=== PATIENT | female | born 1975 | race Caucasian/White ===

== ENCOUNTER 2020-02-13 06:58 | Emergency (ER) | payer BC, SELFPAY ==
[2020-02-13] VITALS (7 sets, daily range): BP systolic 106–126; BP diastolic 72–90; PULSE 63–90; RESP 16–19; TEMP 37.1; O2SAT 92–98; BMI 34.0
--- NOTE | 2020-02-13 07:10 | XR_ITS ---
WS: [id number] EXAM: AP CHEST: PORTABLE UPRIGHT DATE OF EXAM: 02/13/2020, 0803 hours COMPARISON: Chest x-ray from 12/08/2017. HISTORY: Patient is 45 years old with atraumatic chest pain. FINDINGS: The cardiac silhouette is normal in size. The mediastinal contours are normal. The pulmonary vas cularity is normal. The lungs are clear of infiltrate. There is no effusion or pneumothorax. No ac ely shoshone bony abnormality is seen. XR/XR chest 1V portable [id number] IMPRESSION: No acute pulmonary disease.
--- NOTE | 2020-02-13 07:10 | ECG_ITS ---
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 Measurements Intervals [place] Rate: 87 P: -37 CA: 113 QRS: 90 QRSD: 84 T: 61 QT: 352 QTc: 424 Interpretive Statements SINUS RHYTHM WITH SHORT CA INTERVAL Compared to ECG 12/08/2017 20:42:28 Short CA interval now present Electronically Signed On 02-13-2020 14:48:58 CDT by Tami Caldwell M.D. [id number]
--- NOTE | 2020-02-13 07:10 | W.ED.CHESTPA ---
HPI - Chest Pain General: Chief Complaint: Chest Pain Stated Complaint: CP Time Seen by Provider: 02/13/20 07:09 History of Present Illness: HPI narrative: 45-year-old female who presents to the emergency room with complaint of chest pain that started 3 days ago states is gotten increasingly worse. It is epigastric radiating up into the chest. This began 3 days ago. Is worse when she swallows she has had some nausea but no vomiting or diarrhea she denies fever chest pain is worse with coughing. She denies any previous evaluation for any chest pain or any cardiac evaluation. MD complaint: chest pain Onset (ago): day(s) (3) Timing of current episode: constant Prior episodes: No Onset: during rest Pain location: substernal and epigastric Pain radiation: abdomen Severity: severe Quality: aching Relieving factors: nothing Exacerbating factors: nothing Associated symptoms: Reports abdominal pain, dyspnea and nausea; Deny diaphoresis, fever(s), leg edema, palpitations, sense of impending doom, syncope or vomiting Treatment prior to arrival: none Review of Systems Const: Denies: fever(s) or diaphoresis ENMT: Denies: throat pain, ear or mastoid pain, nasal discharge or nasal congestion Card: Denies: palpitations or syncope Resp: Reports: dyspnea GI: Reports: abdominal pain and nausea; Denies: vomiting : Denies: flank pain, difficulty voiding, dysuria, urinary frequency or urinary urgency Skin/Breast: Denies: rash or pruritus [facility] ED PFSH: Surgical History (Updated 02/13/20 @ 11:12 by Geovani Ortega DO) H/O: hysterectomy Hx of cholecystectomy Social History (Updated 02/13/20 @ 07:08 by Delroy Cordero RN) Smoking and tobacco status: light tobacco smoker Alcohol intake: never Physical Exam Const: COMMON NORMALS: no acute distress GENERAL APPEARANCE: cooperative and comfortable ORIENTATION/CONSCIOUSNESS: Yes awake, Yes oriented to person, Yes oriented to place and Yes oriented to time HENMT: COMMON NORMALS: normocephalic, atraumatic and hearing grossly normal bilaterally HEAD & SCALP: normocephalic and atraumatic Eye: COMMON NORMALS: Equal, round and reactive pupils present, EOMs intact bilaterally, conjunctivae normal and no scleral icterus CONJUNCTIVA: Yes conjunctivae normal PUPIL: Yes Equal, round and reactive pupils present Neck/C-Spine: COMMON NORMALS: no JVD Resp: COMMON NORMALS: normal respiratory effort, No retractions, No use of accessory muscles and clear to auscultation bilaterally AUSCULTATION: clear to auscultation bilaterally Cardio: COMMON NORMALS: no JVD, regular rate, regular rhythm and No murmurs present (Cardio) RATE: regular rate RHYTHM: regular rhythm GI: COMMON NORMALS: Soft to palpation and No hepatosplenomegaly present AUSCULTATION: Yes normoactive bowel sounds PALPATION: Yes Soft to palpation, No Tenderness to palpation present (GI), No Guarding due to palpation present (GI) and Yes No hepatosplenomegaly present Extremity: COMMON NORMALS: normal to inspection, capillary refill normal, no clubbing, cyanosis or edema, no calf tenderness and no pedal edema Neuro: SENSORIUM/ORIENTATION: Yes oriented to person, Yes oriented to place and Yes oriented to time Skin: COMMON NORMALS: no rashes or lesions noted GENERAL SKIN EXAM: no rashes or lesions noted Course Vital Signs: Vital signs: Vital Signs Temperature 98.7 F 02/13/20 07:03 Pulse Rate 81 02/13/20 12:01 Respiratory Rate 17 02/13/20 12:01 Blood Pressure 106/72 02/13/20 12:01 Pulse Oximetry 92 02/13/20 12:01 MDM - Chest Pain MDM Narrative: Medical decision making narrative: Troponin negative, patient had relief with the GI cocktail. CT of the abdomen negative we will go and discharge her home on a PPI and antiemetics and will also get her set up for an EGD with Dr. Orellana. Lab Data: Labs: Lab Results 02/13/20 02/13/20 02/13/20 Range/Units 07:23 07:23 07:23 WBC 12.3 H (4.0-10.0) 10^3/ uL RBC 4.97 (4.1-5.3) 10^6/u L Hgb 14.9 (11.5-15.3) g/dL Hct 45.0 (37.0-47.0) % MCV 90.5 (81-99) fL MCH 30.0 (28.0-34.0) pg MCHC 33.1 (30.0-36.0) g/dL RDW 12.2 (12.1-15.1) % Plt Count 311 (130-400) 10^3/c mm MPV 9.0 (7.4-10.4) fL Neut % (Auto) 72.8 % Lymph % (Auto) 18.8 % [place] % (Auto) 5.9 % Eos % (Auto) 1.5 % Baso % (Auto) 0.6 % Neut # (Auto) 8.97 H (1.8-7.7) 10^3/u L Lymph # (Auto) 2.3 (0.8-4.8) 10^3/u L [place] # (Auto) 0.7 (0.2-0.9) 10^3/u L Eos # (Auto) 0.2 (0.0-0.8) 10^3/u L Baso # (Auto) 0.1 (0.0-0.1) 10^3/u L Nucleated RBC % (a uto) 0 % Nucleated RBCs # 0.0 /100WBC Sodium 136 (136-145) mmol/L Potassium 4.1 (3.5-5.1) mmol/L Chloride 101 (98-107) mmol/L Carbon Dioxide 23 (22-29) mmol/L Anion Gap 16.1 (5-19) BUN 12 (6-20) mg/dL Creatinine 0.6 (0.5-0.9) mg/dL GFR Calculation 108.1 (90-130) mL/min Glucose 126 H (65-115) mg/dL Calculated Osmolal ity 280 L (285-295) mOsm/k g Calcium 8.9 (8.5-10.5) mg/dL Total Bilirubin 0.4 (0.15-1.2) mg/dL AST 21 (0-32) U/L ALT 29 (0-33) U/L Alkaline Phosphata se 81 (35-105) IU/L Troponin T Baselin e 7 (0-10) ng/L Troponin T 120 Min [place] (0-10) ng/L Delta Troponin T (0-10) ABS# Total Protein 7.2 (6.6-8.7) g/dL Albumin 4.4 (3.5-5.2) g/dL Globulin 2.8 (1.3-4.6) g/dL Urine Color (Yellow) Urine Appearance (CLEAR) Urine pH (5-7) Ur Specific Gravit y (1.005-1.030) Urine Protein (Negative) Urine Glucose (UA) (Normal) Urine Ketones (Negative) Urine Blood (Negative) Urine Nitrate (Negative) Urine Bilirubin (Negative) Urine Urobilinogen (Negative) mg/dL Ur Leukocyte Gloria ase (Negative) 02/13/20 02/13/20 Range/Units 09:25 10:20 WBC (4.0-10.0) 10^3/ uL RBC (4.1-5.3) 10^6/u L Hgb (11.5-15.3) g/dL Hct (37.0-47.0) % MCV (81-99) fL MCH (28.0-34.0) pg MCHC (30.0-36.0) g/dL RDW (12.1-15.1) % Plt Count (130-400) 10^3/c mm MPV (7.4-10.4) fL Neut % (Auto) % Lymph % (Auto) % [place] % (Auto) % Eos % (Auto) % Baso % (Auto) % Neut # (Auto) (1.8-7.7) 10^3/u L Lymph # (Auto) (0.8-4.8) 10^3/u L [place] # (Auto) (0.2-0.9) 10^3/u L Eos # (Auto) (0.0-0.8) 10^3/u L Baso # (Auto) (0.0-0.1) 10^3/u L Nucleated RBC % (a uto) % Nucleated RBCs # /100WBC Sodium (136-145) mmol/L Potassium (3.5-5.1) mmol/L Chloride (98-107) mmol/L Carbon Dioxide (22-29) mmol/L Anion Gap (5-19) BUN (6-20) mg/dL Creatinine (0.5-0.9) mg/dL GFR Calculation (90-130) mL/min Glucose (65-115) mg/dL Calculated Osmolal ity (285-295) mOsm/k g Calcium (8.5-10.5) mg/dL Total Bilirubin (0.15-1.2) mg/dL AST (0-32) U/L ALT (0-33) U/L Alkaline Phosphata se (35-105) IU/L Troponin T Baselin e (0-10) ng/L Troponin T 120 Min [place]ark[place] 6.00 (0-10) ng/L Delta Troponin T -1.00 L (0-10) ABS# Total Protein (6.6-8.7) g/dL Albumin (3.5-5.2) g/dL Globulin (1.3-4.6) g/dL Urine Color Straw (Yellow) Urine Appearance Clear (CLEAR) Urine pH 7.0 (5-7) Ur Specific Gravit y 1.005 (1.005-1.030) Urine Protein Neg (Negative) Urine Glucose (UA) Norm (Normal) Urine Ketones Negative (Negative) Urine Blood Neg (Negative) Urine Nitrate Negative (Negative) Urine Bilirubin Neg (Negative) Urine Urobilinogen Norm (Negative) mg/dL Ur Leukocyte Gloria ase Negative (Negative) Discharge Plan Discharge Patient Disposition: Home Clinical Impression: Reflux esophagitis Condition: Stable Prescriptions: New Zofran 4 mg tablet 4 mg PO Q6H PRN (Reason: nausea and vomiting) Qty: 20 RF: 0 No Action ibuprofen 200 mg Tablet 400 mg PO PRN RF: 0 Pepto-Bismol See Rx Instructions .ROUTE .COMPLEX RF: 0 Tums See Rx Instructions .ROUTE .COMPLEX RF: 0 Discharge Orders: Discharge Order (Routine); Ordered 02/13/20 Ordered By: Geovani Ortega Discharge Activity: Increase activity as tolerated Patient Instructions: Diet for Ulcers and Gastritis (ED) Activity Restrictions/Additional Instructions: Aloe up with your doctor within 7 to 10 days. Return to the emergency room you have any problems. Discharge Date/Time: 02/13/20 12:03 Coding Level of Care Code ED Target Network Analyst for Adrienne Fwd Exam Comprehensive
[2020-02-13] MEDS: ondansetron 2 mg/ML SDV 2 mL 4 MG IVP ×2 (07:23→09:02)
[2020-02-13] MEDS: lidocaine 2% viscous 15 ML, aluminum-mag hydrox-simethicon 30 ML, sucralfate oral liq 1 GM PO (07:23)
[2020-02-13 07:29] LABS: Basophils # 0.1 10^3/uL (0.0-0.1); Basophils % 0.6 %; Eosinophils # 0.2 10^3/uL (0.0-0.8); Eosinophils % 1.5 %; Hemoglobin 14.9 g/dL (11.5-15.3); Lymphocytes # 2.3 10^3/uL (0.8-4.8); Lymphocytes % 18.8 %; Mean Corpuscular HGB Conc 33.1 g/dL (30.0-36.0); Mean Corpuscular Volume 90.5 fL (81-99); Monocytes # 0.7 10^3/uL (0.2-0.9); Monocytes % 5.9 %; Neutrophils # 8.97 10^3/uL (1.8-7.7); Neutrophils % 72.8 %; Nucleated Red Blood Cells % 0 %; Platelet Count 311 10^3/cmm (130-400); Red Blood Count 4.97 10^6/uL (4.1-5.3); Red Cell Distribution Width 12.2 % (12.1-15.1); White Blood Count 12.3 10^3/uL (4.0-10.0)
[2020-02-13 07:50] LABS: Alanine Aminotransferase 29 U/L (0-33); Albumin Level 4.4 g/dL (3.5-5.2); Alkaline Phosphatase 81 IU/L (35-105); Anion Gap 16.1 (5-19); Aspartate Amino Transferase 21 U/L (0-32); Blood Urea Nitrogen 12 mg/dL (6-20); Calcium 8.9 mg/dL (8.5-10.5); Carbon Dioxide 23 mmol/L (22-29); Chloride 101 mmol/L (98-107); Creatinine Clr Calc Pharmacy 152.2481; Globulin 2.8 g/dL (1.3-4.6); Glomerular Filtration Rate 108.1 mL/min (90-130); Glucose 126 mg/dL (65-115); Osmolality Calculated 280 mOsm/kg (285-295); Potassium 4.1 mmol/L (3.5-5.1); Sodium 136 mmol/L (136-145); Total Bilirubin 0.4 mg/dL (0.15-1.2); Total Protein 7.2 g/dL (6.6-8.7); Troponin(5th) Baseline 7 ng/L (0-10)
--- NOTE | 2020-02-13 08:56 | CT_ITS ---
WS: [id number] CT ABDOMEN AND PELVIS WITH CONTRAST HISTORY: abd pain, chest and RIGHT upper quadrant pain for 3 days. TECHNIQUE: Imaging performed of the abdomen and pelvis with IV contrast. Single phase imaging of the abdomen. Coronal and sagittal reformats are submitted. All CT scans at [facility] use at least one of these dose optimization techniques: automated exposure control; mA and/or kV adjustment per patient size (includes targeted exams where dose is matched to clinical indication); or iterativ e reconstruction. IV CONTRAST: Omnipaque 300; 95 mL IV. Oral contrast: No DLP: 1611.91 mGy.cm COMPARISON: 01/09/2019 Lower thorax: Stable 8 mm nodule central calcification medial RIGHT lower lobe since 2019. Heart is n ormal size. Small hiatal hernia. Liver/biliary system: Normal size with no intrahepatic dilatation. Gallbladder: Status post cholecystectomy. No bile duct dilatation. Pancreas: Normal. Spleen: Normal. Adrenal glands: Normal. Right kidney: Cortical 8 mm cyst in the mid kidney. No obstruction. Left kidney: Normal. Aorta: Normal. Lymphadenopathy: None. Free fluid: None. GI tract: Normal appendix. No GI tract obstruction. No wall thickening. Slight increased amount of fl uid in the cecum and distal small bowel. Abdominal wall: Fat-containing umbilical hernia. Pelvis: Prior hysterectomy. Urinary bladder is not distended. Bones: L4 anterolisthesis by [address]/CT abdomen pelvis w con* [id number] IMPRESSION: 1. Prior cholecystectomy and hysterectomy. 2. No acute abdominal or pelvic abnormalities are identified. There is very mi nimal increase fluid in the cecum. No appendicitis.
[2020-02-13] MEDS: morphine 4 mg/mL SDV 1 mL IVP (09:01)
--- NOTE | 2020-02-13 09:10 | ECG_ITS ---
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 Measurements Intervals [place] Rate: 63 P: -8 ID: 123 QRS: 94 QRSD: 87 T: 36 QT: 410 QTc: 420 Interpretive Statements SINUS RHYTHM BORDERLINE RIGHT AXIS DEVIATION [QRS AXIS > 90] Compared to ECG 02/13/2020 07:13:05 Short ID interval no longer present Electronically Signed On 02-13-2020 22:30:52 CDT by Tami Caldwell M.D. [email or web address] [email or web address].[email or web address]/store/OM/[id number]
[2020-02-13 09:29] LABS: Add Urine Microscopic? NO
[2020-02-13] MEDS: diphenhydrAMINE 50 mg/mL SDV 1mL 25 MG IVP (09:32)
[2020-02-13 09:38] LABS: Protein Urine Neg (Negative); Specific Gravity, Urine 1.005 (1.005-1.030); Urine Appearance Clear (CLEAR); Urine Color Straw (Yellow)
[2020-02-13 09:39] LABS: Bilirubin Urine Neg (Negative); Blood Urine Neg (Negative); Glucose Urine UA Norm (Normal); Ketones Urine Negative (Negative); Leukocyte Esterase Urine Negative (Negative); Nitrate Urine Negative (Negative); Urobilinogen Urine Norm (Negative)
[2020-02-13] MEDS: iohexol 300 mg/mL 100 mL Btl IV (09:54)
--- NOTE | 2020-02-13 15:47 | DCPLANNER ---
lands resource manager had message to schedule a follow up appointment for patient with Dr. Orellana. lands resource manager called the office of Dr. Orellana, spoke with Jesenia. A follow up appointment was scheduled for , February 15, 2020 at 11:[address] Orellana, clinic will call patient with appointment information.
--- NOTE | 2020-03-01 08:20 | DCPLANNER ---
Patient had a follow up appointment scheduled for 02.15.[address] Orellana - patient did attend appointment.
== END 2020-02-13 12:03 | disposition home or self-care (01) ==
PROVIDERS: Emergency Provider Family Medicine
DX: K21.0 Gastro-esophageal reflux disease with esophagitis (principal); F17.210 Nicotine dependence, cigarettes, uncomplicated
CPT/HCPCS: 12345; 36415; 71045; 74177; 80053; 81003; 84484; 85025; 93005; 96374; 96375; 99283; 99284; J1200; J2270; J2405; Q9967

== ENCOUNTER 2020-02-23 08:23 | Day surgery (SDC) | payer BC, SELFPAY ==
[2020-02-22 16:24] VITALS: BMI 34.9
[2020-02-23 08:39] VITALS: BP 111/80; PULSE 83; RESP 18; TEMP 36.3; O2SAT 98
--- NOTE | 2020-02-23 08:49 | ANES.PREANE2 ---
Pre-Anesthetic Assessment Pre-Anesthetic Assessment: Height/Weight: Height 1.73 m Weight 104.326 kg Temp Pulse Resp BP Pulse Ox 97.3 F L 83 18 111/80 98 02/23/20 08:39 02/23/20 08:39 02/23/20 08:39 02/23/20 08:39 02/23/20 08:39 Preop Diagnosis: GERD Proposed Procedure: Operation Date: 02/23/20 09:30 Proposed Procedures p EGD R13.10 90116(Not Applicable) - Eugene Orellana MD Was Beta Ángel taken within 24 hours: N/A Last intake: Intake Last Liquid Date 02/22/20 Last Liquid Time 22:30 Last Solid Date 02/22/20 Last Solid Time 18:30 Social: Social History: Tobacco (1pk a week) and No alcohol Exam: Pre-Anes Outpt Exam: alert, oriented x 3, clear to auscultation bilaterally and regular rate & rhythm Airway: Submandibular: WNL Cervical ROM: WNL MP: 2 Dentition: Full History/ROS: No significant history except as noted and No significant complaints Pulmonary: Pulmonary: None reported CV/HEM: CV/HEM: None reported : : None reported Hepatic: Hepatic: None reported GI: GI: GERD Metabolic: Metabolic: Morbid obesity Musc/skel: Musc/skel: None reported Neuropsych: Neuropsych: Anxiety and ARRIETA Anesthetic Plan: ASA status: 2 PFSH Anesthesia PFSH: Surgical History H/O: hysterectomy Hx of cholecystectomy Social History (Updated 02/15/20 @ 11:16 by NOE Nj) Smoking and tobacco status: light tobacco smoker Alcohol intake: never History of recent travel: No Data Anesthesia Cardiac Studies: No Data to Display
[2020-02-23] MEDS: sodium chloride 0.9% 1,000 ML 30 ML IV (08:52)
--- NOTE | 2020-02-23 09:02 | W.PM.OPSUD ---
Surgery/Procedure H&P Update DATE OF PROCEDURE: February 23, 2020 DATE H&P PERFORMED: 02/15/20 PREOP DIAGNOSIS: GERD PLANNED PROCEDURE: Operation Date: 02/23/20 09:30 Proposed Procedures p EGD R13.10 [id number](Not Applicable) - Eugene Orellana MD
[2020-02-23 09:20] VITALS: BP 115/88; PULSE 78; RESP 16; TEMP 36.1; O2SAT 98
--- NOTE | 2020-02-23 10:00 | ANE.PACU2 ---
Inpatient post-anesthesia follow up: Airway intact: Yes Vital signs: Temperature 97 F Pulse Rate 78 Respiratory Rate 16 Blood Pressure 115/88 Pulse Oximetry 98 Oxygen Delivery Me thod Nasal Cannula Oxygen Flow Rate 2 Fraction of Inspir ed Oxygen Hydration adequate: Yes Nausea and vomiting: No Mental status: Baseline
[2020-02-24 14:45] LABS: H. Pylori / CLO Test Positive
== END 2020-02-23 09:50 | disposition home or self-care (01) ==
PROVIDERS: Visit Provider Internal Medicine
PROC: 0DJ08ZZ Inspection of Upper Intestinal Tract, Via Natural or Artificial Opening Endoscopic (ICD-10-PCS; CPT 43235; principal; 2020-02-23 09:00)
DX: K21.9 Gastro-esophageal reflux disease without esophagitis (principal); K29.71 Gastritis, unspecified, with bleeding; F17.210 Nicotine dependence, cigarettes, uncomplicated; E66.01 Morbid (severe) obesity due to excess calories; Z68.35 Body mass index [BMI] 35.0-35.9, adult
CPT/HCPCS: 12345; 43239; 87077; J2704; J3010; J7030

== ENCOUNTER 2022-04-20 12:47 | Emergency (ER) | payer BC, SELFPAY ==
[2022-04-20 12:52] VITALS: BMI 33.4
[2022-04-20 12:56] VITALS: BP 108/74; PULSE 80; TEMP 36.4; O2SAT 97
[2022-04-20 14:26] VITALS: BP 130/80; PULSE 79; RESP 18; O2SAT 97
--- NOTE | 2022-04-20 14:31 | CT_ITS ---
WS: [id number] CT ABDOMEN AND PELVIS WITH CONTRAST HISTORY: suspected appy TECHNIQUE: Imaging performed of the abdomen and pelvis with IV contrast. Single phase imaging of the abdomen. Coronal and sagittal reformats are submitted. All CT scans at [facility] use at [address] one of these dose optimization techniques: automated exposure control; mA and/or kV adjustment per patient size (includes targeted exams where dose is matched to clinical indication); or iterative re construction. IV CONTRAST: Omnipaque 350; 95 mL IV. Oral contrast: No DLP: 1009.93 mGy.cm COMPARISON: 02/13/2020 Lower thorax: Lung bases are clear. Heart is normal size. No hiatal hernia. Liver/biliary system: Normal size with no intrahepatic dilatation. Gallbladder: Status post cholecystectomy. Pancreas: Normal size pancreas and pancreatic duct. No adjacent inflammation. Spleen: Normal size spleen. No mass or infarct. Adrenal glands: Normal. Right kidney: Cortical hypodensity mid RIGHT kidney measures 9 mm and unchanged. No obstruction. Left kidney: Normal. Aorta: Normal. Lymphadenopathy: None. Free fluid: None. GI tract: Moderate fluid distention of the stomach. No small bowel obstruction. Normal appendix. Mild fecal retention throughout the entire colon. Abdominal wall: Small umbilical hernia contains fat only. Pelvis: No free fluid or adenopathy. Prior hysterectomy. Bones: Unremarkable. CT/CT abdomen pelvis w con* [id number] IMPRESSION: 1. No evidence for appendicitis. 2. No GI tract obstruction or submucosal edema or 3. Mild diffuse constipation. 4. Prior cholecystectomy and hysterectomy.
[2022-04-20 14:38] LABS: Basophils # 0.1 10^3/uL (0.0-0.1); Basophils % 0.6 %; Eosinophils # 0.2 10^3/uL (0.0-0.8); Eosinophils % 1.9 %; Hematocrit 45.4 % (37.0-47.0); Hemoglobin 15.1 g/dL (11.5-15.3); Lymphocytes # 2.6 10^3/uL (0.8-4.8); Lymphocytes % 27.7 %; Mean Corpuscular HGB Conc 33.3 g/dL (30.0-36.0); Mean Corpuscular Hemoglobin 30.3 pg (28.0-34.0); Mean Corpuscular Volume 91.2 fl (81-99); Mean Platelet Volume 9.1 fL (7.4-10.4); Monocytes # 0.5 10^3/uL (0.2-0.9); Neutrophils # 6.08 10^3/uL (1.8-7.7); Neutrophils % 64.1 %; Nucleated Red Blood Cells % 0 %; Platelet Count 355 10^3/cmm (130-400); Red Blood Count 4.98 10^6/uL (4.1-5.3); Red Cell Distribution Width 12.4 % (12.1-15.1); White Blood Count 9.5 10^3/uL (4.0-10.0)
--- NOTE | 2022-04-20 14:53 | W.ED.ABDPA2 ---
HPI - Abdominal Pain General: Chief Complaint: Abdominal Pain Stated Complaint: left abd pain Time Seen by Provider: 04/20/22 14:21 Source: patient Mode of arrival: ambulatory Limitations: no limitations History of Present Illness: 47-year-old female presents with abdominal pain that started as periumbilical pain a few days ago and progressed to right lower quadrant stabbing severe pain worse with palpation or movement. Any small bump while she is walking or in the vehicle causes pain. This morning she had nausea and vomited. She has no appetite. She has had a hysterectomy as well as oophorectomy and hysterectomy. She does still have her appendix. She denies any hematuria, dysuria, constipation, diarrhea. Last night she had low-grade fever Associated Symptoms: Denies chills, diarrhea, dysuria and syncope Review of Systems General: Reports: 10 or more systems reviewed and unremarkable except in HPI and below Const: Denies: chills Card: Denies: chest pain or syncope Resp: Denies: dyspnea, productive cough or non-productive cough GI: Denies: diarrhea : Denies: flank pain or dysuria Skin/Breast: Denies: rash or sores Neuro: Denies: headache(s) or weakness in extremities PFSH ED PFSH: Surgical History H/O: hysterectomy Hx of cholecystectomy Social History (Updated 02/15/20 @ 11:[address]) Smoking and tobacco status: light tobacco smoker Alcohol intake: never History of recent travel: No Physical Exam Const: COMMON NORMALS: no limitations, alert and well nourished EXAM LIMITATIONS: no altered mental status HENMT: COMMON NORMALS: normocephalic, atraumatic and external ears normal HEAD & SCALP: normocephalic and atraumatic EXTERNAL EAR: Yes external ears normal MOUTH: no muffled voice Neck/C-Spine: COMMON NORMALS: no JVD GENERAL: Yes normal visual inspection and Yes trachea midline Resp: COMMON NORMALS: normal respiratory effort and No use of accessory muscles Cardio: COMMON NORMALS: no JVD, regular rate and regular rhythm RATE: regular rate RHYTHM: regular rhythm GI: PALPATION: Yes Tenderness to palpation present (GI), Yes Guarding due to palpation present (GI) and Yes Rebound tenderness present Details: McBurney's point Extremity: COMMON NORMALS: normal to inspection Neuro: COMMON NORMALS: moves all extremities, no focal motor deficits and no sensory deficits noted SENSORIUM/ORIENTATION: Yes alert Psych: COMMON NORMALS: mental status grossly normal, Normal thought process present, cooperative, normal affect and speech normal SPEECH: Yes normal speech THOUGHT PROCESS: Normal thought process present Skin: COMMON NORMALS: no rashes or lesions noted, turgor normal and no jaundice GENERAL SKIN EXAM: no rashes or lesions noted and turgor normal Course Vital Signs: Vital signs: Vital Signs Temperature 97.5 F L 04/20/22 12:56 Pulse Rate 79 04/20/22 14:26 Respiratory Rate 18 04/20/22 15:07 Blood Pressure 180/80 04/20/22 16:08 Pulse Oximetry 97 04/20/22 16:08 Oxygen Delivery Me thod 04/20/22 16:08 MDM - Abdominal Pain Medical Decision Making Clinically most consistent with acute appendicitis. NPO. CT pending. ddx also includes uti, abscess, gastroenteritis, obstruction/impaction, neoplasm, stone, other. Low suspicion mesenteric ischemia, AAA, dissection. UPDATE: WBC normal CMP normal UA normal CT abd/pelv normal. I had second radiologist over-read as initial radiologist had left for the day. Both agree no appendicitis or other inflammatory/acute findings other than some constipation of cecum. Discussed with patient all these findings. Will give her a bowel cleanout regimen and return precautions. Lab Data 04/20/22 14:00 04/20/22 14:00 Labs/Radiology: Radiology Impressions Abdomen/Pelvis CT 04/20/22 14:31 IMPRESSION: 1. No evidence for appendicitis. 2. No GI tract obstruction or submucosal edema or 3. Mild diffuse constipation. 4. Prior cholecystectomy and hysterectomy. Laboratory Results WBC 9.5 10^3/uL (4.0-10.0) 04/20/22 14:00 RBC 4.98 10^6/uL (4.1-5.3) 04/20/22 14:00 Hgb 15.1 g/dL (11.5-15.3) 04/20/22 14:00 Hct 45.4 % (37.0-47.0) 04/20/22 14:00 MCV 91.2 fl (81-99) 04/20/22 14:00 MCH 30.3 pg (28.0-34.0) 04/20/22 14:00 MCHC 33.3 g/dL (30.0-36.0) 04/20/22 14:00 RDW 12.4 % (12.1-15.1) 04/20/22 14:00 Plt Count 355 10^3/cmm (130-400) 04/20/22 14:00 MPV 9.1 fL (7.4-10.4) 04/20/22 14:00 Neut % (Auto) 64.1 % 04/20/22 14:00 Lymph % (Auto) 27.7 % 04/20/22 14:00 [place] % (Auto) 5.0 % 04/20/22 14:00 Eos % (Auto) 1.9 % 04/20/22 14:00 Baso % (Auto) 0.6 % 04/20/22 14:00 Neut # (Auto) 6.08 10^3/uL (1.8-7.7) 04/20/22 14:00 Lymph # (Auto) 2.6 10^3/uL (0.8-4.8) 04/20/22 14:00 [place] # (Auto) 0.5 10^3/uL (0.2-0.9) 04/20/22 14:00 Eos # (Auto) 0.2 10^3/uL (0.0-0.8) 04/20/22 14:00 Baso # (Auto) 0.1 10^3/uL (0.0-0.1) 04/20/22 14:00 Nucleated RBC % (auto) 0 % 04/20/22 14:00 Nucleated RBCs # 0.0 /100WBC 04/20/22 14:00 Sodium 140 mmol/L (136-145) 04/20/22 14:00 Potassium 3.8 mmol/L (3.5-5.1) 04/20/22 14:00 Chloride 102 mmol/L (98-107) 04/20/22 14:00 Carbon Dioxide 28 mmol/L (22-29) 04/20/22 14:00 Anion Gap 13.8 (5-19) 04/20/22 14:00 BUN 15 mg/dL (6-20) 04/20/22 14:00 Creatinine 0.5 mg/dL (0.5-0.9) 04/20/22 14:00 GFR Calculation 132.2 mL/min (90-130) H 04/20/22 14:00 Glucose 78 mg/dL (65-115) 04/20/22 14:00 Calculated Osmolality 290 mOsm/kg (285-295) 04/20/22 14:00 Calcium 9.7 mg/dL (8.5-10.5) 04/20/22 14:00 Total Bilirubin 0.2 mg/dL (0.15-1.2) 04/20/22 14:00 AST 17 U/L (0-32) 04/20/22 14:00 ALT 24 U/L (0-33) 04/20/22 14:00 Alkaline Phosphatase 89 U/L (35-105) 04/20/22 14:00 Total Protein 8.0 g/dL (6.6-8.7) 04/20/22 14:00 Albumin 4.1 g/dL (3.5-5.2) 04/20/22 14:00 Globulin 3.9 g/dL (1.3-4.6) 04/20/22 14:00 Lipase 34 U/L (13-60) 04/20/22 14:00 HCG, Qual Negative (Negative) 04/20/22 15:11 Urine Color Yellow (Yellow) 04/20/22 15:11 Urine Appearance Clear (CLEAR) 04/20/22 15:11 Urine pH 6 (5-7) 04/20/22 15:11 Ur Specific [place] 1.020 (1.005-1.030) 04/20/22 15:11 Urine Protein Neg (Negative) 04/20/22 15:11 Urine Glucose (UA) Norm (Normal) 04/20/22 15:11 Urine Ketones Negative (Negative) 04/20/22 15:11 Urine Blood Neg (Negative) 04/20/22 15:11 Urine Nitrate Negative (Negative) 04/20/22 15:11 Urine Bilirubin Neg (Negative) 04/20/22 15:11 Urine Urobilinogen Norm mg/dL (Negative) 04/20/22 15:11 Ur Leukocyte Esterase Negative (Negative) 04/20/22 15:11 Discharge Plan Discharge Patient Disposition: Home Clinical Impression: Abdominal pain, acute Condition: Stable Prescriptions: New senna 8.6 mg capsule 8.6 mg PO BID PRN (Reason: constipation) 10 Days Qty: 20 0RF ondansetron 4 mg tablet,disintegrating 4 mg PO Q8H 3 Days Qty: 9 0RF No Action Aleve 220 mg Tablet 440 mg PO Q12H PRN (Reason: Pain) Discharge Orders: Discharge ED (Routine); Ordered 04/20/22 Ordered By: Sami Medina Discharge Diet: Advance as tolerated Discharge Activity: Resume usual activity Patient Instructions: Abdominal Pain (ED), Opioid Safety, Pain Management Activity Restrictions/Additional Instructions: Please read handout and abide by instructions, including return precautions. Please make a follow-up appointment with your primary care doctor for 5-7 days. Return if getting worse. Coding Level of Care Code ED Manager Of Selection And Assessment for Adrienne Fwd Exam Comprehensive
[2022-04-20 14:58] LABS: Alanine Aminotransferase 24 U/L (0-33); Albumin Level 4.1 g/dL (3.5-5.2); Alkaline Phosphatase 89 U/L (35-105); Anion Gap 13.8 (5-19); Aspartate Amino Transferase 17 U/L (0-32); Blood Urea Nitrogen 15 mg/dL (6-20); Calcium 9.7 mg/dL (8.5-10.5); Carbon Dioxide 28 mmol/L (22-29); Chloride 102 mmol/L (98-107); Globulin 3.9 g/dL (1.3-4.6); Glomerular Filtration Rate 132.2 mL/min (90-130); Glucose 78 mg/dL (65-115); Lipase 34 U/L (13-60); Osmolality Calculated 290 mOsm/kg (285-295); Potassium 3.8 mmol/L (3.5-5.1); Sodium 140 mmol/L (136-145); Total Bilirubin 0.2 mg/dL (0.15-1.2)
[2022-04-20] MEDS: iohexol 350 mg/mL 500 mL Btl (per mL) IV (14:58)
[2022-04-20] MEDS: sodium chloride 0.9% 1,000 ML 999 ML IV (15:02)
[2022-04-20] MEDS: ondansetron 2 mg/ML SDV 2 mL 4 MG IVP (15:03)
[2022-04-20] MEDS: ketorolac 30 mg/mL INJ 15 MG IVP (15:04)
[2022-04-20 15:07] VITALS: RESP 18; O2SAT 100
[2022-04-20] MEDS: HYDROmorphone 1 mg/mL INJ 1 mL 0.5 MG IVP (15:07)
[2022-04-20 15:17] LABS: Add Urine Microscopic? NO; Charge for UA Resulting for Rev
[2022-04-20 15:22] LABS: Urine Appearance Clear (CLEAR); Urine Color Yellow (Yellow)
[2022-04-20 15:23] LABS: Bilirubin Urine Neg (Negative); Blood Urine Neg (Negative); Glucose Urine UA Norm (Normal); HCG Qualitative Urine. Negative (Negative); Ketones Urine Negative (Negative); Leukocyte Esterase Urine Negative (Negative); Nitrate Urine Negative (Negative); Protein Urine Neg (Negative); Urobilinogen Urine Norm (Negative); pH Urine 6 (5-7)
[2022-04-20 15:28] VITALS: O2SAT 97
[2022-04-20 16:08] VITALS: BP 180/80; O2SAT 97
[2022-04-20 17:20] VITALS: BP 111/75; PULSE 70; O2SAT 96
== END 2022-04-20 17:20 | disposition home or self-care (01) ==
PROVIDERS: Family Medicine; Emergency Provider Emergency Medicine
DX: R10.31 Right lower quadrant pain (principal); K59.00 Constipation, unspecified; F17.210 Nicotine dependence, cigarettes, uncomplicated
CPT/HCPCS: 36415; 74177; 80053; 81003; 81025; 83690; 85025; 96361; 96374; 96375; 99285; J1170; J1885; J2405; J7030; Q9967

== ENCOUNTER 2023-05-03 14:43 | Emergency (ER) | payer BC, SELFPAY ==
--- NOTE | 2023-05-03 14:45 | ECG_ITS ---
[facility] Test Date: 2023-05-03 Pat Name: Ebonie Bowden Department: Room: Gender: Female Business Analyst Manager: : 1975 Requested By: Mansi Lantigua Order Number: [id number] Pradeep MD: Tami Caldwell M.D. Measurements Intervals [place] Rate: 86 P: 0 [place]: 0 QRS: 94 QRSD: 88 T: 42 QT: 362 QTc: 433 Interpretive Statements SINUS RHYTHM BORDERLINE RIGHT AXIS DEVIATION [QRS AXIS > 90] Compared to ECG 02/13/2020 10:12:13 NO SIGNIFICANT CHANGES Electronically Signed On 05-03-2023 16:49:42 LITHOGRAPHIC PRESS OPERATOR APPRENTICE by Tami Caldwell M.D. [email or web address] river county [email or web address] hospitals [email or web address]/[id number]
--- NOTE | 2023-05-03 14:45 | XRR_ITS ---
PROCEDURE INFORMATION: Exam: XR Chest Exam date and time: 05/03/2023 2:49 PM Age: 48 years old Clinical indication: Shortness of breath; Additional info: SOB TECHNIQUE: Imaging protocol: Radiologic exam of the chest. Views: 1 view. COMPARISON: CR XR chest 1V portable [id number] 02/13/2020 8:01 AM FINDINGS: Lungs: Unremarkable. No consolidation. Pleural spaces: Unremarkable. No pleural effusion. No pneumothorax. Heart/Mediastinum: Unremarkable. No cardiomegaly. Bones/joints: Unremarkable. XR/XR chest 1V portable [id number] IMPRESSION: No acute findings.
[2023-05-03 14:53] VITALS: BP 123/83; PULSE 87; RESP 18; TEMP 36.6; O2SAT 98; BMI 38.0
[2023-05-03 16:29] VITALS: BP 124/92; PULSE 71; O2SAT 97
[2023-05-03 16:30] VITALS: PULSE 68; O2SAT 96
[2023-05-03 16:41] LABS: Basophils # 0.1 10^3/uL (0.0-0.1); Basophils % 0.8 %; Eosinophils # 0.1 10^3/uL (0.0-0.8); Eosinophils % 1.3 %; Hematocrit 45.6 % (36-47); Lymphocytes # 2.5 10^3/uL (0.8-4.8); Lymphocytes % 24.9 %; Mean Corpuscular HGB Conc 32.2 g/dL (30-55); Mean Corpuscular Hemoglobin 29.6 pg (27-33); Mean Corpuscular Volume 91.8 fl (85-98); Mean Platelet Volume 9.4 fL (7.4-10.4); Monocytes # 0.6 10^3/uL (0.2-0.9); Monocytes % 6.2 %; Neutrophils % 66.2 %; Nucleated Red Blood Cells % 0 %; Platelet Count 303 10^3/cmm (157-399); Red Blood Count 4.97 10^6/uL (3.85-5.65); Red Cell Distribution Width 12.9 % (12.1-15.1); White Blood Count 9.83 10^3/uL (3.29-11.43)
[2023-05-03 16:50] LABS: Troponin(5th) Baseline < 6 ng/L (0-10)
[2023-05-03 17:00] LABS: Alanine Aminotransferase 30 U/L (0-33); Albumin Level 4.4 g/dL (3.5-5.2); Alkaline Phosphatase 87 U/L (35-105); Aspartate Amino Transferase 22 U/L (0-32); Blood Urea Nitrogen 11 mg/dL (6-20); Calcium 9.9 mg/dL (8.5-10.5); Carbon Dioxide 26 mmol/L (22-29); Chloride 102 mmol/L (98-107); Globulin 2.9 g/dL (1.3-4.6); Glomerular Filtration Rate 89.3 mL/min (90-130); Glucose 90 mg/dL (65-115); NT Pro B Type Natriuretic Pept < 36 pg/mL (0-125); Osmolality Calculated 287 mOsm/kg (285-295); Sodium 139 mmol/L (136-145); Total Bilirubin 0.3 mg/dL (0.15-1.2); Total Protein 7.3 g/dL (6.6-8.7)
--- NOTE | 2023-05-03 17:34 | ECG_ITS ---
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 [email or web address]
--- NOTE | 2023-05-03 17:50 | ED_ITS ---
HPI - Chest Pain 2 General: Chief Complaint: Shortness of Breath/Dyspnea Stated Complaint: sob Time Seen by Provider: 05/03/23 17:08 History of Present Illness: 48-year-old female presents emerged part with complaints of feeling like she has some vague left chest wall pain. She states she feels like she also has some left arm pain. She states that she feels like she is short of breath and has a history of anxiety. She states that she has not seen a primary care doctor for some time because her primary care doctor has retired. She states the pain is a aggravating dull type pain and it is intermittently accompanied by some nausea. She states she overall generally does not feel well. She does not appear to be in any acute distress. She states that she does feel significantly anxious because she knows her body and she knows that something is not quite right. Associated symptoms: Reports nausea Review of Systems 2 General: Reports: 10 or more systems reviewed and unremarkable except in HPI and below GI: Reports: nausea Musc: Reports: other (Left lateral chest wall pain) PFSH ED 2 PFSH: Surgical History H/O: hysterectomy Hx of cholecystectomy Social History (Updated 02/15/20 @ 11:16 by Christine Felipe, CT) Smoking and tobacco/nicotine status: light tobacco/nicotine user Alcohol intake: never Substance/Drug Use: never Physical Exam 2 Narrative: EXAM NARRATIVE: Constitutional: the patient appears well nourished and with normal development. Vital signs reviewed as documented. HENMT: Normocephalic, atraumatic. Extermal ears with normal appearance without drainage. Nose without drainage, normal appearance. Mucus membranes moist. Neck is supple, No jugular venous distension, trachea is midline, no appreciable carotid bruits. No lymphadenopathy. No meningeal signs. Flexion, extension and lateral rotation is without pain. Eyes: Pupils are equal, round, reactive to light and accommodation. No scleral icterus. Extra-ocular movement are intact. Thorax is symmetrical and with equal rise and fall with respirations. Resp: Lungs are clear to auscultation. No wheezes, rales, crackles or ronchi at present. Cardio: Regular rate and rhythm. Positive S1, S2. No appreciable murmurs, rubs or gallops. GI: Abdominal exam reveals normal bowel sounds to all quadrants. No organomegaly. No obvious palpable masses noted. No hepatomegally appreciated. Soft, nontender to palpation. Extremity: Extremities are non-edematous and both femoral and pedal pulses are 2+ and equal bilaterally. Moves all extremities well, sensation in all extremities. Neuro: Alert and oriented x4, person, place, time and situation. Cranial nerves II through XII are grossly intact, there is no focal neurological deficits that I can appreciate at present. Motor strength in the upper and lower extremities are equal and bilateral 5/5. Psych: Cooperative, calm, normal thought process, appropriate judgment. Skin: No lesions, rashes. No gross abnormalities noted. Back: Symmetrical, no obvious deformity, No CVA tenderness Course 2 Vital Signs: Vital signs: Vital Signs Temperature 97.8 F 05/03/23 14:53 Pulse Rate 78 05/03/23 18:27 Respiratory Rate 18 05/03/23 14:53 Blood Pressure 114/89 05/03/23 18:27 Pulse Oximetry 96 05/03/23 18:27 Oxygen Delivery Me thod Room Air 05/03/23 18:27 MDM - Chest Pain Medical Decision Making Physical exam completed and documented, I will obtain a plain film radiograph cardiac enzymes serial EKGs as well as CBC and CMP and reevaluate the patient. I discussed the importance of obtaining a primary care provider as well as recommended follow-up with potentially cardiology and the patient verbalized understanding all information including the risk benefits possible complications of not following up. Medical Records I reviewed the patient's medical records. Lab Data I reviewed the patient's lab results. 05/03/23 16:14 05/03/23 16:14 Radiology Impressions Chest X-Ray 05/03/23 14:45 IMPRESSION: No acute findings. Laboratory Results WBC 9.83 10^3/uL (3.29-11.43) 05/03/23 16:14 RBC 4.97 10^6/uL (3.85-5.65) 05/03/23 16:14 Hgb 14.70 g/dL (11.27-16.99) 05/03/23 16:14 Hct 45.6 % (36-47) 05/03/23 16:14 MCV 91.8 fl (85-98) 05/03/23 16:14 MCH 29.6 pg (27-33) 05/03/23 16:14 MCHC 32.2 g/dL (30-55) 05/03/23 16:14 RDW 12.9 % (12.1-15.1) 05/03/23 16:14 Plt Count 303 10^3/cmm (157-399) 05/03/23 16:14 MPV 9.4 fL (7.4-10.4) 05/03/23 16:14 Neut % (Auto) 66.2 % 05/03/23 16:14 Lymph % (Auto) 24.9 % 05/03/23 16:14 [place] % (Auto) 6.2 % 05/03/23 16:14 Eos % (Auto) 1.3 % 05/03/23 16:14 Baso % (Auto) 0.8 % 05/03/23 16:14 Neut # (Auto) 6.50 10^3/uL (1.8-7.7) 05/03/23 16:14 Lymph # (Auto) 2.5 10^3/uL (0.8-4.8) 05/03/23 16:14 [place] # (Auto) 0.6 10^3/uL (0.2-0.9) 05/03/23 16:14 Eos # (Auto) 0.1 10^3/uL (0.0-0.8) 05/03/23 16:14 Baso # (Auto) 0.1 10^3/uL (0.0-0.1) 05/03/23 16:14 Nucleated RBC % (auto) 0 % 05/03/23 16:14 Nucleated RBCs # 0.0 /100WBC 05/03/23 16:14 Sodium 139 mmol/L (136-145) 05/03/23 16:14 Potassium 4.0 mmol/L (3.5-5.1) 05/03/23 16:14 Chloride 102 mmol/L (98-107) 05/03/23 16:14 Carbon Dioxide 26 mmol/L (22-29) 05/03/23 16:14 Anion Gap 15.0 (5-19) 05/03/23 16:14 BUN 11 mg/dL (6-20) 05/03/23 16:14 Creatinine 0.7 mg/dL (0.5-0.9) 05/03/23 16:14 GFR Calculation 89.3 mL/min (90-130) L 05/03/23 16:14 Glucose 90 mg/dL (65-115) 05/03/23 16:14 Calculated Osmolality 287 mOsm/kg (285-295) 05/03/23 16:14 Calcium 9.9 mg/dL (8.5-10.5) 05/03/23 16:14 Total Bilirubin 0.3 mg/dL (0.15-1.2) 05/03/23 16:14 AST 22 U/L (0-32) 05/03/23 16:14 ALT 30 U/L (0-33) 05/03/23 16:14 Alkaline Phosphatase 87 U/L (35-105) 05/03/23 16:14 Troponin T Baseline < 6 ng/L (0-10) 05/03/23 16:14 Troponin T 120 Minute 6.00 ng/L (0-10) 05/03/23 18:16 Delta Troponin T 0.85642 ABS# (0-10) 05/03/23 18:16 NT-Pro-B Natriuret Pep < 36 pg/mL (0-125) 05/03/23 16:14 Total Protein 7.3 g/dL (6.6-8.7) 05/03/23 16:14 Albumin 4.4 g/dL (3.5-5.2) 05/03/23 16:14 Globulin 2.9 g/dL (1.3-4.6) 05/03/23 16:14 Influenza Type A Ag negative (Negative) 05/03/23 17:28 Influenza Type B Ag negative (Negative) 05/03/23 17:28 SARS-CoV-2 Ag (Rapid) negative (Negative) 05/03/23 17:28 No radiology studies performed this visit Discharge Plan Discharge Patient Disposition: Home Clinical Impression: Atypical chest pain, Anxiety Arrhythmia Qualifiers: Arrhythmia type: atrial fibrillation Atrial fibrillation type: paroxysmal Q ualified Code(s): I48.0 - Paroxysmal atrial fibrillation Condition: Stable Prescriptions: No Action Aleve 220 mg Tablet 440 mg PO Q12H PRN (Reason: Pain) Discharge Orders: Discharge ED (Routine); Ordered 05/03/23 Ordered By: Kris Higgins Referrals: Nikolas Beck DO [Physician] - Discharge Diet: Advance as tolerated Discharge Activity: Resume usual activity Patient Instructions: Opioid Safety, Pain Management Activity Restrictions/Additional Instructions: Activity Restrictions/Additional Instructions: Thank you for choosing [facility] for your healthcare needs today. Please realize that you were seen in the Emergency Department and that we are providing you with an emergency medical screening exam and this may not be complete and all inclusive of all the testing and or medical work-up that you may need to determine your ailment or severity of your illness. It is very important that you follow-up as instructed with your Primary care provider or Specialist for additional evaluation and to discuss your medical treatment plan. You may return to the Emergency Department should you have concerns or if your condition changes or worsens in any way. Coding Level of Care Code ED Electrician Outside for Adrienne Guajardo
[2023-05-03 18:00] LABS: Influenza A by IFA negative (Negative); Influenza B by IFA negative (Negative); SARS Covid-2 Antigen negative (Negative)
[2023-05-03 18:05] VITALS: BP 157/105; PULSE 74; O2SAT 97
[2023-05-03 18:27] VITALS: BP 114/89; PULSE 78; O2SAT 96
[2023-05-03 18:44] LABS: Troponin 5 2HR Delta 0.00001 ABS# (0-10)
== END 2023-05-03 19:55 | disposition home or self-care (01) ==
PROVIDERS: Emergency Medicine; Emergency Provider Internal Medicine
DX: R07.89 Other chest pain (principal); F41.9 Anxiety disorder, unspecified; I48.0 Paroxysmal atrial fibrillation; Z11.52 Encounter for screening for COVID-19; Z72.0 Tobacco use
CPT/HCPCS: 36415; 71045; 80053; 83880; 84484; 85025; 87426; 87804; 93005; 99285

== ENCOUNTER → 2024-06-14 12:34 | Outpatient (BNVA) | payer BC, SELFPAY | PROVIDERS: PCP Family Medicine; Visit Provider Family Medicine | DX: L98.9 Disorder of the skin and subcutaneous tissue, unspecified (principal) | CPT/HCPCS: 88305 ==